=== PATIENT | female | born 1945 | race Caucasian/White ===

== ENCOUNTER 2019-04-05 17:56 | Inpatient (IN) | payer MEDICARE, MEDICAID ==
[2019-04-05] MEDS ORDERED: fentaNYL 100 MCG/2 ML SDV NASBOTH ONE ×2 (19:21→20:45)
[2019-04-05] MEDS ORDERED: Ondansetron 4 MG Tab.DIS PO ONE (19:21)
--- NOTE | 2019-04-05 19:24 | EDM.PDOC ---
ED HPI GENERAL MEDICAL PROBLEM - General Chief Complaint: Lower Extremity Injury/Pain Stated Complaint: MEDICAL VIA [facility] Time Seen by Provider: 04/05/19 19:16 Source of Information: Reports: Patient, Family, RN Notes Reviewed History Limitations: Reports: No Limitations - History of Present Illness INITIAL COMMENTS - FREE TEXT/NARRATIVE: 74-year-old female presents to the emergency department today complaint of right hip pain, she injured herself walking the dog pulling over she felt anorexia right elbow right shoulder did not hit her head there was no loss of consciousness denies any other trauma hip Pain Score (Numeric/FACES): 9 - Related Data Allergies Allergy/AdvReac Type Severity Reaction Status Date / Time codeine Allergy Other Verified 04/05/19 18:00 latex Allergy Other Verified 04/05/19 18:00 Home Meds: Home Meds Diltiazem [Cardizem CD] 120 mg PO DAILY 04/05/19 [History] Escitalopram [Lexapro] 5 mg PO DAILY 04/05/19 [History] Levothyroxine 25 mcg PO ACBREAKFAST 04/05/19 [History] Lisinopril 20 mg PO DAILY 04/05/19 [History] Mycophenolate Mofetil [Cellcept] 500 mg PO DAILY 04/05/19 [History] Pyridostigmine [Mestinon] 120 mg PO BID 04/05/19 [History] metFORMIN [Glucophage] 500 mg PO ASDIRECTED 04/05/19 [History] Past Medical History Cardiovascular History: Reports: CAD, [place] Gastrointestinal History: Reports: Diverticulosis Endocrine/Metabolic History: Reports: Diabetes, Type II Hematologic History: Reports: Other (See Below) Other Hematologic History: autoimmune disorder Social & Family History - Tobacco Use Smoking Status *Q: Never Smoker - Caffeine Use Caffeine Use: Reports: Coffee, Tea - Recreational Drug Use Recreational Drug Use: No Review of Systems - Review of Systems Review Of Systems: See Below Constitutional: Reports: No Symptoms Respiratory: Reports: No Symptoms Cardiovascular: Reports: No Symptoms GI/Abdominal: Reports: No Symptoms Musculoskeletal: Reports: Shoulder Pain, Joint Pain (Hip pain right side) Neurological: Reports: No Symptoms ED EXAM, GENERAL - Physical Exam Exam: See Below Free Text/Narrative:: Examination of the muscular system on the right side C is tender to palpation over the right hip pelvis area will not tolerate any movement whatsoever without pain pedal pulses +2, she does have an abrasion over the right elbow however it is not tender to palpation full range of motion, she is tender over the right shoulder I don't appreciate any edema or abrasion no erythema noted Exam Limited By: No Limitations General Appearance: Alert, WD/WN, No Apparent Distress Respiratory/Chest: No Respiratory Distress, Lungs Clear, Normal Breath Sounds, No Accessory Muscle Use, Chest Non-Tender Cardiovascular: Regular Rate, Rhythm, No Murmur Course - Vital Signs Last Recorded V/S: Last Vital Signs Temp 97.8 F 04/05/19 17:57 Pulse 70 04/05/19 21:30 Resp 20 04/05/19 21:30 BP 151/69 H 04/05/19 21:30 Pulse Ox 99 04/05/19 21:30 - Orders/Labs/Meds Orders: Active Orders 24 hr Category Date Time Status Sodium Chloride 0.9% [Saline Flush] Med 04/05/19 21:54 Active 10 ml FLUSH ASDIRECTED PRN Medication Orders Sodium Chloride (Saline Flush) 10 ml FLUSH ASDIRECTED 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 Last Admin: 04/05/19 22:10 Dose: 10 ml Meds: Medications Generic Name Dose Route Start Last Admin Trade Name Freq PRN Reason Stop Dose Admin Sodium Chloride 10 ml 04/05/19 21:54 04/05/19 22:10 Saline Flush FLUSH 10 ml ASDIRECTED PRN Administration line patrolman Discontinued Medications Generic Name Dose Route Start Last Admin Trade Name Freq PRN Reason Stop Dose Admin Fentanyl 50 mcg 04/05/19 19:21 04/05/19 19:30 Sublimaze NASBOTH 04/05/19 19:22 50 mcg ONETIME ONE Administration Fentanyl 50 mcg 04/05/19 20:45 04/05/19 20:53 Sublimaze NASBOTH 04/05/19 20:46 50 mcg ONETIME ONE Administration Hydromorphone HCl 1 mg 04/05/19 21:54 04/05/19 22:05 Dilaudid IVPUSH 04/05/19 21:55 1 mg ONETIME ONE Administration Ondansetron HCl 4 mg 04/05/19 19:21 04/05/19 19:31 Zofran Odt PO 04/05/19 19:22 4 mg ONETIME ONE Administration Departure - Departure Time of Disposition: 23:17 Disposition: Admitted As Inpatient 64 Condition: Fair Clinical Impression: Right femur fracture Intertrochanteric fracture of right femur Qualifiers: Encounter type: initial encounter Fracture type: closed Fracture alignment: nondisplaced Qualified Code(s): S72.144A - Nondisplaced intertrochanteric fracture of right femur, initial encounter for closed fracture - Discharge Information Referrals: PCP,None [Primary Care Provider] - Forms: ED Department Discharge - My Orders Last 24 Hours: My Active Orders 04/05/19 21:54 Sodium Chloride 0.9% [Saline Flush] 10 ml FLUSH ASDIRECTED PRN - Assessment/Plan Last 24 Hours: My Active Orders 04/05/19 21:54 Sodium Chloride 0.9% [Saline Flush] 10 ml FLUSH ASDIRECTED PRN Plan: Assessment Acuity = acute Site and laterality = nondisplaced intertrochanteric fracture right proximal femur Etiology = secondary fall with trauma Manifestations = pain Location of injury = Home Lab values = x-rays shoulder elbow negative for any fracture, x-ray of the hip questionable for fracture confirmed with CT scan which describes above Plan Called discussed case with Dr. Guidry at 2300 kindly accepted the patient's will evaluate patient in the hospital This note was dictated using [employer] voice recognition software please call with any questions on syntax or grammar.
--- NOTE | 2019-04-05 20:34 | CRLCR ---
HISTORY: Status post fall with pain. COMPARISON: None available. FINDINGS: The right elbow is examined with AP, lateral, and oblique views. There is no sign of fracture, dislocation, or joint effusion. The soft tissues are normal in appearance without sign of radio-opaque foreign body. No significant degenerative disease is seen. IMPRESSION: Normal right elbow examination. Dictated by Omar Womack MD @ Apr 05 2019 8:30PM Signed by Dr. Omar Womack @ Apr 05 2019 8:32PM
--- NOTE | 2019-04-05 20:34 | CRLCR ---
INDICATION: Fall, pelvic and hip pain TECHNIQUE: Pelvis radiograph, Hip radiograph 3 views right COMPARISON: None FINDINGS: Bone: On the frog-leg lateral view, there are serpiginous lucency seen over the greater trochanter. Joint: Severe degenerative disc narrowing seen at L4-5 with bilateral severe facet osteoarthritis seen. The visualized sacroiliac joints are unremarkable in appearance. The pubic symphysis is normal in appearance. Soft tissue: Unremarkable. Mild to moderate vascular calcifications are noted. Numerous bilateral pelvic phleboliths seen. No radiopaque foreign bodies are seen. IMPRESSION: 1. On the frog-leg lateral view, there are serpiginous lucency seen over the right greater trochanter. Further evaluation with CT is recommended to exclude a nondisplaced fracture. Dictated by Azam Keith MD @ 04/05/2019 8:33:31 PM Dictated by: Azam Keith MD @ 04/05/2019 20:33:43 (Electronically Signed)
--- NOTE | 2019-04-05 20:36 | CRLCR ---
INDICATION: Fall, shoulder pain TECHNIQUE: Shoulder radiograph 3 views right COMPARISON: None FINDINGS: Bone: No acute fractures or aggressive bone lesions are identified. Joint: The glenohumeral is unremarkable. The acromioclavicular joint is unremarkable. Soft tissue: Unremarkable. The visualized hemithorax is unremarkable in appearance. No radiopaque foreign bodies are seen. IMPRESSION: 1. No acute osseous injuries or abnormalities are noted. Dictated by: Azam Keith MD @ 04/05/2019 20:34:08 (Electronically Signed)
[2019-04-05] MEDS ORDERED: Sodium Chloride 0.9% 10 ML Syringe FLUSH PRN ×2 (21:54→23:19)
[2019-04-05] MEDS ORDERED: HYDROmorphone 1 MG/ML Syringe IVPUSH ONE (21:54)
--- NOTE | 2019-04-05 22:16 | CRLCT ---
INDICATION: Fall, right hip pain TECHNIQUE: CT pelvis without i.v. contrast. Coronal and sagittal reformats were obtained. COMPARISON: Radiograph today FINDINGS: Bone: There is a nondisplaced intertrochanteric fracture present within the right proximal femur with fracture lines involving the greater trochanter. The predominant fracture line is best visualized on coronal image 49. The remainder of the pelvis and visualized left proximal femur are unremarkable in appearance. Joint: The hip joint is unremarkable. No significant hip effusion is seen. The visualized sacroiliac joints are unremarkable in appearance. The pubic symphysis is normal in appearance. Soft tissue: Unremarkable. The visualized bowel gas pattern of the pelvis is unremarkable in appearance. No radiopaque foreign bodies are seen. IMPRESSION: 1. There is a nondisplaced intertrochanteric fracture present within the right proximal femur with fracture lines involving the greater trochanter. Dictated by Azam Keith MD @ 04/05/2019 10:13:20 PM Please note that all CT scans at this facility use dose modulation, iterative reconstruction, and/or weight-based dosing when appropriate to reduce radiation dose to as low as reasonably achievable. Dictated by: Azam Keith MD @ 04/05/2019 22:13:40 (Electronically Signed)
[2019-04-05] MEDS ORDERED: Lactated Ringers 1,000 ML IV SCH (23:30)
[2019-04-05] MEDS ORDERED: metFORMIN 500 MG Tab PO SCH (23:45)
[2019-04-06] MEDS: HYDROmorphone 0.5 MG/0.5 ML Syringe IVPUSH PRN ×2 (01:14→07:52)
[2019-04-06] MEDS: Ondansetron 4 MG/2 ML SDV IV PRN ×2 (01:32→07:58)
[2019-04-06] MEDS ORDERED: Propofol 200 MG/20 ML SDV ONE ×2 (08:49→13:55)
[2019-04-06] MEDS ORDERED: Midazolam 1 MG/ML 2 ML SDV ONE (08:50)
[2019-04-06] MEDS ORDERED: fentaNYL 100 MCG/2 ML SDV ONE (08:50)
[2019-04-06] MEDS ORDERED: Promethazine 6.25 MG in Sodium Chloride 0.9% 50 ML IV PRN (10:16)
[2019-04-06] MEDS: Escitalopram 10 MG Tab PO SCH (10:25)
[2019-04-06] MEDS: Lisinopril 20 MG Tab PO SCH (10:25)
[2019-04-06] MEDS: Levothyroxine 25 MCG Tab PO SCH (10:25)
[2019-04-06] MEDS: Mycophenolate Mofetil 250 MG Cap PO SCH (10:25)
[2019-04-06] MEDS: Diltiazem 120 MG Cap.CD PO SCH (10:25)
--- NOTE | 2019-04-06 10:43 | PCM.CONS ---
H&P History of Present Illness - General Date of Service: 04/06/19 Admit Problem/Dx: Admission Diagnosis/Problem Admission Diagnosis/Problem Hip fracture requiring operative repair Source of Information: Patient, Family, Provider History Limitations: Reports: No Limitations - History of Present Illness Initial Comments - Free Text/Narative: CC: I fell on my hip HPI: Bailey presented to the emergency room last night with right hip pain after falling while walking her dog. Workup in the emergency room revealed a nondisplaced intertrochanteric fracture of the right hip. She was admitted for surgical management. I was asked to see her this morning regarding medical management of her type 2 diabetes mellitus, myasthenia gravis and hypertension. Her pain is currently very well controlled. She is reporting only mild to moderate sharp pain in the right hip. Pain is worse when she moves around. It gets better when she rests and when she uses her pain medications. No complaints of shortness of breath. She has had a couple of episodes of vomiting which she blames on her pain medications. She has not had recent fevers. No concerns about infection. She has had previous surgeries with no difficulty with anesthesia. hip Pain Score (Numeric/FACES): 7 - Related Data Allergies/Adverse Reactions: Allergies Allergy/AdvReac Type Severity Reaction Status Date / Time codeine Allergy Other Verified 04/05/19 18:00 latex Allergy Other Verified 04/05/19 18:00 Home Medications: Home Meds Diltiazem [Cardizem CD] 120 mg PO DAILY 04/05/19 [History] Escitalopram [Lexapro] 5 mg PO DAILY 04/05/19 [History] Levothyroxine 25 mcg PO ACBREAKFAST 04/05/19 [History] Lisinopril 20 mg PO DAILY 04/05/19 [History] Mycophenolate Mofetil [Cellcept] 500 mg PO DAILY 04/05/19 [History] Pyridostigmine [Mestinon] 120 mg PO BID 04/05/19 [History] metFORMIN [Glucophage] 500 mg PO ASDIRECTED 04/05/19 [History] Past Medical History HEENT History: Reports: Hard of Hearing, Impaired Vision Cardiovascular History: Reports: None Gastrointestinal History: Reports: Diverticulosis [employer] History: Reports: Musculoskeletal History: Reports: Osteoarthritis Endocrine/Metabolic History: Reports: Diabetes, Type II, Hypothyroidism, Other ( See Below) Other Endocrine/Metabolic History: myasthenia gravis Hematologic History: Reports: Other (See Below) Other Hematologic History: autoimmune disorder Immunologic History: Reports: None - Infectious Disease History Infectious Disease History: Reports: Chicken Pox, Measles - Past Surgical History Head Surgeries/Procedures: Reports: None HEENT Surgical History: Reports: None Cardiovascular Surgical History: Reports: None GI Surgical History: Reports: Other (See Below) Other GI Surgeries/Procedures: sigmoid colon resection Endocrine Surgical History: Reports: None Social & Family History - Family History Family Medical History: Noncontributory - Tobacco Use Smoking Status *Q: Never Smoker Second Hand Smoke Exposure: No - Caffeine Use Caffeine Use: Reports: Coffee, Soda - Recreational Drug Use Recreational Drug Use: No H&P Review of Systems - Review of Systems: Review Of Systems: See Below Free Text/Narrative: A complete 12 point review of systems was obtained. Pertinent positives and negatives are noted in the history of present illness. All other systems were reviewed and were negative except as noted. Exam - Exam Exam: See Below - Vital Signs Vital Signs: Last Vital Signs Temp 35.9 C 04/06/19 07:23 Pulse 78 04/06/19 07:23 Resp 16 04/06/19 07:23 BP 154/72 H 04/06/19 07:23 Pulse Ox 98 04/06/19 07:23 Weight: 57.379 kg - Exam Quality Assessment: No: Supplemental Oxygen General: Alert, Oriented, Cooperative. No: Mild Distress HEENT: Conjunctiva Clear, Mucosa Moist & [place] Neck: Supple. No: Lymphadenopathy Lungs: Clear to Auscultation, Normal Respiratory Effort Cardiovascular: Regular Rate, Regular Rhythm. No: Systolic Murmur GI/Abdominal Exam: Soft, No Distention Extremities: No Pedal Edema. No: Increased Warmth Skin: Warm, Dry Neuro Extensive - Mental Status: Alert, Oriented x3, Nl Response to Commands Neuro Extensive - Motor, Sensory, Reflexes: Other (Disconjugate gaze). No: Abnormal Motor, Tremor Psychiatric: Alert, Normal Affect - Patient Data Lab Results Last 24 hrs: Laboratory Results - last 24 hr 04/06/19 04/06/19 Range/Units 04:50 04:50 WBC 6.8 (4.5-11.0) K/uL RBC 3.87 (3.30-5.50) M/uL Hgb 12.0 (12.0-15.0) g/dL Hct 35.8 L (36.0-48.0) % MCV 93 (80-98) fL MCH 31 (27-31) pg MCHC 34 (32-36) % Plt Count 188 (150-400) K/uL Neut % (Auto) 86 H (36-66) % Lymph % (Auto) 6 L (24-44) % [place] % (Auto) 8 H (2-6) % Eos % (Auto) 0 L (2-4) % Baso % (Auto) 0 (0-1) % Sodium 139 L (140-148) mmol/L Potassium 3.8 (3.6-5.2) mmol/L Chloride 104 (100-108) mmol/L Carbon Dioxide 29 (21-32) mmol/L Anion Gap 9.8 (5.0-14.0) mmol/L BUN 10 (7-18) mg/dL Creatinine 0.7 (0.6-1.0) mg/dL Est Cr Clr Drug Dosing 61.52 mL/min Estimated GFR (MDRD) > 60 (>60) Glucose 153 H (74-106) mg/dL Calcium 8.8 (8.5-10.1) mg/dL Total Bilirubin 0.6 (0.2-1.0) mg/dL AST 16 (15-37) U/L ALT 22 (12-78) U/L Alkaline Phosphatase 51 (46-116) U/L Total Protein 6.8 (6.4-8.2) g/dL Albumin 3.2 L (3.4-5.0) g/dL Globulin 3.6 H (2.3-3.5) g/dL Albumin/Globulin Ratio 0.9 L (1.2-2.2) Result Diagrams: 04/06/19 04:50 04/06/19 04:50 Imaging Impressions Last 24 hrs: X-ray of the pelvis/right hip - images personally reviewed - probable nondisplaced intertrochanteric fracture of the right CT scan of the right hip - nondisplaced intertrochanteric fracture involving the right greater trochanter Consult PN Assessment/Plan Problem List Initiated/Reviewed/Updated: Yes My Orders Last 24 Hours: My Active Orders 04/06/19 10:45 Lactated Ringers [Ringers, Lactated] 1,000 ml IV ASDIRECTED 04/07/19 05:00 BASIC METABOLIC PANEL,BMP [CHEM] Timed CBC W/O DIFF,HEMOGRAM [HEME] Timed (1) Plan: ASSESSMENT AND PLAN - Nondisplaced intertrochanteric fracture of the right hip - surgical intervention planned later in the day. Patient appears medically optimized for the proposed procedure. Patient is healthy and active with no obvious contraindications. -Surgical intervention as planned -Pain control -Physical therapy when appropriate Myasthenia gravis - main manifestation at this time is difficulty with control of eye muscles. -Continue home medications Type 2 diabetes mellitus - very well controlled. Patient has been off of her metformin and blood sugars have been in the normal or very mildly elevated range. Essential hypertension - blood pressure well controlled. Etienne Mccauley M.D. Requesting Provider: Dr Guidry Date Consult Requested: 04/06/19 Reason for Consult: Medical management of diabetes, HTN and myasthenia graviS Patient History Reviewed: Yes Admission H&P Reviewed: Yes Notified Requestor: No Time Spent (in minutes): 45
[2019-04-06] MEDS ORDERED: Lactated Ringers 1,000 ML IV SCH (10:45)
[2019-04-06] MEDS ORDERED: Bupivacaine 0.5%/EPINEPHrine 1:200,000 50 ML MDV ONE (12:19)
--- NOTE | 2019-04-06 12:39 | PCM.HP ---
H&P History of Present Illness - General Date of Service: 04/06/19 Admit Problem/Dx: Admission Diagnosis/Problem Admission Diagnosis/Problem Hip fracture requiring operative repair Source of Information: Patient History Limitations: Reports: No Limitations - History of Present Illness Initial Comments - Free Text/Narative: 74 year old female sustained a fall when she was pulled off balance while walking her dog. Landed onto he right side and had pain with attempted weight bearing. No loss of consciousness. Evaluated in the ED and found to have a non- displaced fracture of the IT region of the right hip. She is admitted for treatment. Has a history of myasthenia gravis that currently is affecting her vision and can cause some balance problems but was not a factor in this fall. Also with a history of well controlled DM and HTN. Onset of Symptoms: Reports: Sudden Duration of Symptoms: Reports: Constant Location: Reports: Lower Extremity, Right Quality: Reports: Stabbing Severity: Moderate Improves with: Reports: Immobilization, Rest Worsens with: Reports: Movement Associated Symptoms: Reports: No Other Symptoms hip Pain Score (Numeric/FACES): 7 - Related Data Allergies/Adverse Reactions: Allergies Allergy/AdvReac Type Severity Reaction Status Date / Time codeine Allergy Other Verified 04/05/19 18:00 latex Allergy Other Verified 04/05/19 18:00 Home Medications: Home Meds Diltiazem [Cardizem CD] 120 mg PO DAILY 04/05/19 [History] Escitalopram [Lexapro] 5 mg PO DAILY 04/05/19 [History] Levothyroxine 25 mcg PO ACBREAKFAST 04/05/19 [History] Lisinopril 20 mg PO DAILY 04/05/19 [History] Mycophenolate Mofetil [Cellcept] 500 mg PO DAILY 04/05/19 [History] Pyridostigmine [Mestinon] 120 mg PO BID 04/05/19 [History] metFORMIN [Glucophage] 500 mg PO ASDIRECTED 04/05/19 [History] Past Medical History HEENT History: Reports: Hard of Hearing, Impaired Vision Cardiovascular History: Reports: None Gastrointestinal History: Reports: Diverticulosis [employer] History: Reports: Musculoskeletal History: Reports: Osteoarthritis Endocrine/Metabolic History: Reports: Diabetes, Type II, Hypothyroidism, Other ( See Below) Other Endocrine/Metabolic History: myasthenia gravis Hematologic History: Reports: Other (See Below) Other Hematologic History: autoimmune disorder Immunologic History: Reports: None - Infectious Disease History Infectious Disease History: Reports: Chicken Pox, Measles - Past Surgical History Head Surgeries/Procedures: Reports: None HEENT Surgical History: Reports: None Cardiovascular Surgical History: Reports: None GI Surgical History: Reports: Other (See Below) Other GI Surgeries/Procedures: sigmoid colon resection Endocrine Surgical History: Reports: None Social & Family History - Family History Family Medical History: Noncontributory - Tobacco Use Smoking Status *Q: Never Smoker Second Hand Smoke Exposure: No - Caffeine Use Caffeine Use: Reports: Coffee, Soda - Recreational Drug Use Recreational Drug Use: No H&P Review of Systems - Review of Systems: Review Of Systems: ROS reveals no pertinent complaints other than HPI. Exam - Exam Exam: See Below - Vital Signs Vital Signs: Last Vital Signs Temp 35.7 C 04/06/19 11:08 Pulse 68 04/06/19 11:08 Resp 16 04/06/19 11:08 BP 142/61 H 04/06/19 11:08 Pulse Ox 99 04/06/19 11:08 Weight: 57.379 kg - Exam General: Alert, Oriented, 4 HEENT: PERRLA, Conjunctiva Clear, EACs Clear, EOMI, Hearing Intact, Mucosa Moist & [place], Nares Patent, Normal Nasal Septum, Posterior Pharynx Clear, Pupils Equal, Pupils Reactive, TMs Clear, Other (difficulty with cotrol of ocular muscles secondary to myasthenia) Neck: Supple, Trachea Midline, 2 Lungs: Clear to Auscultation, Normal Respiratory Effort Cardiovascular: Regular Rate, Regular Rhythm GI/Abdominal Exam: Normal Bowel Sounds, Soft, Non-Tender, No Organomegaly, No Distention, No Abnormal Bruit, No Mass, Pelvis Stable (Female) Exam: Deferred Rectal (Female) Exam: Deferred Extremities: Leg Pain, Other (Pain with motion of right hip, limb lengths equal) Peripheral Pulses: 1+: Dorsalis Pedis (L), Dorsalis Pedis (R) Skin: Warm, Dry, Intact Neurological: Cranial Nerves Intact, Reflexes Equal Bilateral Neuro Extensive - Mental Status: Alert, Oriented x3, Normal Mood/Affect, Normal Cognition Neuro Extensive - Motor, Sensory, Reflexes: CN II-XII Intact Psychiatric: Alert, Normal Affect, Normal Mood - Patient Data Lab Results Last 24 hrs: Laboratory Results - last 24 hr 04/06/19 04/06/19 Range/Units 04:50 04:50 WBC 6.8 (4.5-11.0) K/uL RBC 3.87 (3.30-5.50) M/uL Hgb 12.0 (12.0-15.0) g/dL Hct 35.8 L (36.0-48.0) % MCV 93 (80-98) fL MCH 31 (27-31) pg MCHC 34 (32-36) % Plt Count 188 (150-400) K/uL Neut % (Auto) 86 H (36-66) % Lymph % (Auto) 6 L (24-44) % [place] % (Auto) 8 H (2-6) % Eos % (Auto) 0 L (2-4) % Baso % (Auto) 0 (0-1) % Sodium 139 L (140-148) mmol/L Potassium 3.8 (3.6-5.2) mmol/L Chloride 104 (100-108) mmol/L Carbon Dioxide 29 (21-32) mmol/L Anion Gap 9.8 (5.0-14.0) mmol/L BUN 10 (7-18) mg/dL Creatinine 0.7 (0.6-1.0) mg/dL Est Cr Clr Drug Dosing 61.52 mL/min Estimated GFR (MDRD) > 60 (>60) Glucose 153 H (74-106) mg/dL Calcium 8.8 (8.5-10.1) mg/dL Total Bilirubin 0.6 (0.2-1.0) mg/dL AST 16 (15-37) U/L ALT 22 (12-78) U/L Alkaline Phosphatase 51 (46-116) U/L Total Protein 6.8 (6.4-8.2) g/dL Albumin 3.2 L (3.4-5.0) g/dL Globulin 3.6 H (2.3-3.5) g/dL Albumin/Globulin Ratio 0.9 L (1.2-2.2) Result Diagrams: 04/06/19 04:50 04/06/19 04:50 - Problem List (1) Hypertension SNOMED Code(s): 76573661 ICD Code: I10 - ESSENTIAL (PRIMARY) HYPERTENSION Status: Acute Current Visit: Yes Qualifiers: Hypertension type: essential hypertension Qualified Code(s): I10 - Essential (primary) hypertension (2) Diabetes mellitus type 2 in nonobese SNOMED Code(s): 693088571 ICD Code: E11.9 - TYPE 2 DIABETES MELLITUS WITHOUT COMPLICATIONS Status: Acute Current Visit: Yes (3) Myasthenia gravis SNOMED Code(s): 98522148 ICD Code: G70.00 - MYASTHENIA GRAVIS WITHOUT (ACUTE) EXACERBATION Status: Acute Current Visit: Yes (4) Nondisplaced intertrochanteric fracture of femur SNOMED Code(s): 933493930, 851726375 ICD Code: S72.146A - NONDISPLACED INTERTROCHANTERIC FRACTURE OF UNSP FEMUR, INIT Status: Acute Current Visit: Yes Qualifiers: Encounter type: initial encounter Fracture type: closed Laterality: right Qualified Code(s): S72.144A - Nondisplaced intertrochanteric fracture of right femur, initial encounter for closed fracture Problem List Initiated/Reviewed/Updated: Yes Orders Last 24hrs: Active Orders 24 hr Category Date Time Status Patient Status [ADT] Routine ADT 04/05/19 23:19 Active Bedrest Bedside Commode [RC] ASDIRECTED Care 04/05/19 23:19 Active EKG Documentation Completion [RC] ASDIRECTED Care 04/06/19 01:41 Active Height and Weight [RC] DAILY Care 04/05/19 23:19 Active Intake and Output [RC] QSHIFT Care 04/05/19 23:45 Active Notify Provider Consults [RC] ASDIRECTED Care 04/06/19 10:19 Active Oxygen Therapy [RC] PRN Care 04/05/19 23:19 Active Peripheral IV Care [RC] Q12H Care 04/05/19 23:46 Active VTE/DVT Education [RC] Per Unit Routine Care 04/05/19 23:19 Active Verify Patient Consent Obtain [RC] ASDIRECTED Care 04/06/19 10:16 Active Vital Signs [RC] Q4H Care 04/05/19 23:19 Active Consult to Physician [CONS] Routine Cons 04/06/19 10:17 Ordered Fluoro Up To 1Hr [CR] Routine Exams 04/06/19 12:00 Ordered BASIC METABOLIC PANEL,BMP [CHEM] Timed Lab 04/07/19 05:00 Ordered CBC W/O DIFF,HEMOGRAM [HEME] Timed (1) Lab 04/07/19 05:00 Ordered Diltiazem [Cardizem CD] Med 04/06/19 09:00 Active 120 mg PO DAILY Escitalopram [Lexapro] Med 04/06/19 09:00 Active 5 mg PO DAILY HYDROmorphone [Dilaudid] Med 04/05/19 23:19 Active 0.5 mg IVPUSH Q2H PRN Lactated Ringers [Ringers, Lactated] 1,000 ml Med 04/06/19 10:45 Active IV ASDIRECTED Levothyroxine Med 04/06/19 07:30 Active 25 mcg PO ACBREAKFAST Lisinopril [Prinivil] Med 04/06/19 09:00 Active 20 mg PO DAILY Mycophenolate Mofetil [Cellcept] Med 04/06/19 09:00 Active 500 mg PO DAILY Ondansetron [Zofran] Med 04/05/19 23:19 Active 4 mg IV Q6H PRN Promethazine [Phenergan] 6.25 mg Med 04/06/19 10:16 Active Sodium Chloride 0.9% [Normal Saline] 50 ml IV Q4H Pyridostigmine [Mestinon] Med 04/06/19 09:00 Active 120 mg PO BID Sodium Chloride 0.9% [Saline Flush] Med 04/05/19 23:19 Active 10 ml FLUSH ASDIRECTED PRN Peripheral IV Insertion Adult [OM.PC] Routine Oth 04/05/19 23:19 Ordered Sequential Compression Device [OM.PC] Per Unit Routine Oth 04/05/19 23:45 Ordered Resuscitation Status Routine Resus Stat 04/05/19 23:19 Ordered EKG 12 Lead [EK] AM Ther 04/06/19 05:11 Ordered Medication Orders Diltiazem HCl (Cardizem Cd) 120 mg PO DAILY [facility] Last Admin: 04/06/19 10:25 Dose: Escitalopram Oxalate (Lexapro) 5 mg PO DAILY [facility] Last Admin: 04/06/19 10:25 Dose: Hydromorphone HCl (Dilaudid) 0.5 mg IVPUSH Q2H PRN PRN Reason: Pain Last Admin: 04/06/19 07:52 Dose: 0.5 mg Admin: 04/06/19 01:14 Dose: 0.5 mg Promethazine HCl 6.25 mg/ (Sodium Chloride) 50.25 mls @ 200 mls/hr IV Q4H PRN PRN Reason: Nausea/Vomiting Lactated Ringer's (Ringers, Lactated) 1,000 mls @ 75 mls/hr IV ASDIRECTED [facility] Levothyroxine Sodium (Levothyroxine) 25 mcg PO ACBREAKFAST [facility] Last Admin: 04/06/19 10:25 Dose: Lisinopril (Prinivil) 20 mg PO DAILY [facility] Last Admin: 04/06/19 10:25 Dose: Mycophenolate Mofetil (Cellcept) 500 mg PO DAILY [facility] Last Admin: 04/06/19 10:25 Dose: Ondansetron HCl (Zofran) 4 mg IV Q6H PRN PRN Reason: Nausea/Vomiting Last Admin: 04/06/19 07:58 Dose: 4 mg Admin: 04/06/19 01:32 Dose: 4 mg Pyridostigmine [place] (Mestinon) 120 mg PO BID [facility] Last Admin: 04/06/19 10:25 Dose: Sodium Chloride (Saline Flush) 10 ml FLUSH ASDIRECTED PRN PRN Reason: Keep Vein Open Assessment/Plan Comment:: Non-displaced fracture of the right hip, intertrochanteric. Recommend internal fixation with intramedullary device to allow early mobilization and weight bearing. Mechanical fall with no syncope, LOC. There does not appear to be any contraindication to surgery at this point. Discussed fracture and planned surgery with patient and her family. They expressed understanding and agree to the plan Appreciate Medical Service input and help with management.
[2019-04-06] MEDS ORDERED: Scopolamine 1.5 MG Transdermal Patch TRDERM ONE (12:45)
[2019-04-06] MEDS ORDERED: Lactated Ringers 1,000 ML ONE (14:29)
[2019-04-06] MEDS ORDERED: Ondansetron 4 MG/2 ML SDV ONE (14:31)
[2019-04-06] MEDS ORDERED: Dexamethasone 4 MG/ML SDV ONE (14:31)
[2019-04-06] MEDS ORDERED: Docusate Sodium 100 MG Cap PO PRN (14:51)
[2019-04-06] MEDS ORDERED: Magnesium Hydroxide 400 MG/5 ML Susp 30 ML Cup PO PRN (14:51)
[2019-04-06] MEDS ORDERED: ceFAZolin 1 GM in Sodium Chloride 0.9% 50 ML IV SCH (15:00)
[2019-04-06] MEDS: ceFAZolin 1 GM in Premix Bag 1 BAG IV SCH ×3 (15:35→23:31)
[2019-04-06] MEDS: Acetaminophen 325 MG Tab PO PRN ×2 (17:11→23:37)
[2019-04-06] MEDS: traMADol 50 MG Tab PO PRN (19:16)
[2019-04-06] MEDS: Morphine 2 MG/ML Syringe IVPUSH PRN (21:18)
[2019-04-06] MEDS ORDERED: ceFAZolin 1 GM Vial ONE (23:23)
[2019-04-06] MEDS ORDERED: Sodium Chloride 0.9% 50 ML ONE (23:24)
[2019-04-07] MEDS: traMADol 50 MG Tab PO PRN ×4 (01:33→20:15)
[2019-04-07] MEDS: Morphine 2 MG/ML Syringe IVPUSH PRN (06:02)
[2019-04-07] MEDS: Acetaminophen 325 MG Tab PO PRN ×3 (06:03→22:39)
[2019-04-07] MEDS: Levothyroxine 25 MCG Tab PO SCH (07:43)
[2019-04-07] MEDS: ceFAZolin 1 GM in Premix Bag 1 BAG IV SCH ×3 (08:25→22:41)
[2019-04-07] MEDS: Escitalopram 10 MG Tab PO SCH (08:27)
[2019-04-07] MEDS: Diltiazem 120 MG Cap.CD PO SCH (08:28)
[2019-04-07] MEDS: Lisinopril 20 MG Tab PO SCH (08:28)
[2019-04-07] MEDS: Mycophenolate Mofetil 250 MG Cap PO SCH (10:53)
--- NOTE | 2019-04-07 13:15 | PCM.CONSN ---
- General Info Date of Service: 04/07/19 Subjective Update: There were no acute events overnight. Patient tolerated surgery well. Pain minimal at rest but at least moderate with activity. Vital signs have been stable. No hypoxia. No nausea or abdominal pain. Hemoglobin has dropped down to 8.8 following surgery. Functional Status: Reports: Pain Controlled, Tolerating Diet, Ambulating - Review of Systems General: Denies: Fever Musculoskeletal: Reports: Joint Pain - Patient Data Vitals - Most Recent: Last Vital Signs Temp 35.5 C 04/07/19 11:00 Pulse 73 04/07/19 11:00 Resp 16 04/07/19 11:00 BP 113/51 L 04/07/19 11:00 Pulse Ox 99 04/07/19 11:00 Weight - Most Recent: 57.379 kg I&O - Last 24 Hours: Intake & Output 04/06/19 04/07/19 04/07/19 22:59 06:59 14:59 Intake Total 1934 1680 Output Total 900 800 Balance 1034 880 Lab Results Last 24 Hours: Laboratory Results - last 24 hr 04/07/19 04/07/19 Range/Units 05:38 05:38 WBC 7.2 (4.5-11.0) K/uL RBC 2.88 L (3.30-5.50) M/uL Hgb 8.8 L D (12.0-15.0) g/dL Hct 27.0 L (36.0-48.0) % MCV 94 (80-98) fL MCH 31 (27-31) pg MCHC 33 (32-36) % Plt Count 159 (150-400) K/uL Sodium 138 L (140-148) mmol/L Potassium 4.6 (3.6-5.2) mmol/L Chloride 104 (100-108) mmol/L Carbon Dioxide 31 (21-32) mmol/L Anion Gap 7.6 (5.0-14.0) mmol/L BUN 10 (7-18) mg/dL Creatinine 0.8 (0.6-1.0) mg/dL Est Cr Clr Drug Dosing 53.75 mL/min Estimated GFR (MDRD) > 60 (>60) Glucose 159 H (74-106) mg/dL Calcium 8.7 (8.5-10.1) mg/dL Med Orders - Current: Current Medications Acetaminophen (Tylenol) 650 mg PO Q6H PRN PRN Reason: Pain (mild 1-3) Last Admin: 04/07/19 06:03 Dose: 650 mg Diltiazem HCl (Cardizem Cd) 120 mg PO DAILY [facility] Last Admin: 04/07/19 08:28 Dose: 120 mg Docusate Sodium (Colace) 100 mg PO BID PRN PRN Reason: Constipation Last Admin: 04/07/19 07:42 Dose: 100 mg Escitalopram Oxalate (Lexapro) 5 mg PO DAILY [facility] Last Admin: 04/07/19 08:27 Dose: 5 mg Promethazine HCl 6.25 mg/ (Sodium Chloride) 50.25 mls @ 200 mls/hr IV Q4H PRN PRN Reason: Nausea/Vomiting Cefazolin Sodium/Dextrose 1 gm (/ Premix) 50 mls @ 100 mls/hr IV Q8H [facility] Stop: 04/08/19 07:59 Last Admin: 04/07/19 08:25 Dose: 100 mls/hr Levothyroxine Sodium (Levothyroxine) 25 mcg PO ACBREAKFAST [facility] Last Admin: 04/07/19 07:43 Dose: 25 mcg Lisinopril (Prinivil) 20 mg PO DAILY [facility] Last Admin: 04/07/19 08:28 Dose: 20 mg Magnesium Hydroxide (Milk Of Magnesia) 30 ml PO Q6H PRN PRN Reason: Constipation Morphine Sulfate (Morphine) 2 mg IVPUSH Q1H PRN PRN Reason: Pain (severe 7-10) Last Admin: 04/07/19 06:02 Dose: 2 mg Mycophenolate Mofetil (Cellcept) 500 mg PO DAILY [facility] Last Admin: 04/07/19 10:53 Dose: 500 mg Ondansetron HCl (Zofran) 4 mg IV Q6H PRN PRN Reason: Nausea/Vomiting Last Admin: 04/06/19 07:58 Dose: 4 mg Pyridostigmine [place] (Mestinon) 120 mg PO BID [facility] Last Admin: 04/07/19 08:28 Dose: 120 mg Sodium Chloride (Saline Flush) 10 ml FLUSH ASDIRECTED PRN PRN Reason: Keep Vein Open Tramadol HCl (Ultram) 50 mg PO Q6H PRN PRN Reason: Pain (moderate 4-6) Last Admin: 04/07/19 07:42 Dose: 50 mg Discontinued Medications Bupivacaine HCl/Epinephrine Bitart (Marcaine 0.5%/Epinephrine 1:200,000) Confirm Administered Dose 50 ml .ROUTE .STK-MED ONE Stop: 04/06/19 12:20 Cefazolin Sodium (Ancef) Confirm Administered Dose 1 gm .ROUTE .STK-MED ONE Stop: 04/06/19 23:24 Last Admin: 04/06/19 23:31 Dose: 1 gm Dexamethasone (Dexamethasone) Confirm Administered Dose 4 mg .ROUTE .STK-MED ONE Stop: 04/06/19 14:32 Fentanyl (Sublimaze) 50 mcg NASBOTH ONETIME ONE Stop: 04/05/19 19:22 Last Admin: 04/05/19 19:30 Dose: 50 mcg Fentanyl (Sublimaze) 50 mcg NASBOTH ONETIME ONE Stop: 04/05/19 20:46 Last Admin: 04/05/19 20:53 Dose: 50 mcg Fentanyl (Sublimaze) Confirm Administered Dose 100 mcg .ROUTE .ST-MED ONE Stop: 04/06/19 08:51 Hydromorphone HCl (Dilaudid) 1 mg IVPUSH ONETIME ONE Stop: 04/05/19 21:55 Last Admin: 04/05/19 22:05 Dose: 1 mg Hydromorphone HCl (Dilaudid) 0.5 mg IVPUSH Q2H PRN PRN Reason: Pain Last Admin: 04/06/19 07:52 Dose: 0.5 mg Lactated Ringer's (Ringers, Lactated) 1,000 mls @ 125 mls/hr IV ASDIRECTED [facility] Lactated Ringer's (Ringers, Lactated) 1,000 mls @ 75 mls/hr IV ASDIRECTED [facility] Last Admin: 04/06/19 22:04 Dose: 75 mls/hr Lactated Ringer's (Ringers, Lactated) Confirm Administered Dose 1,000 mls @ as directed .ROUTE .STK-MED ONE Stop: 04/06/19 14:30 Sodium Chloride (Normal Saline) Confirm Administered Dose 50 mls @ as directed .ROUTE .STK-MED ONE Stop: 04/06/19 23:25 Last Admin: 04/06/19 23:31 Dose: 100 mls/hr Metformin HCl (Glucophage) 500 mg PO ASDIRECTED [facility] Midazolam HCl (Versed 1 Mg/Ml) Confirm Administered Dose 2 mg .ROUTE .STK-MED ONE Stop: 04/06/19 08:51 Ondansetron HCl (Zofran Odt) 4 mg PO ONETIME ONE Stop: 04/05/19 19:22 Last Admin: 04/05/19 19:31 Dose: 4 mg Ondansetron HCl (Zofran) Confirm Administered Dose 4 mg .ROUTE .STK-MED ONE Stop: 04/06/19 14:32 Propofol (Diprivan 20 Ml) Confirm Administered Dose 200 mg .ROUTE .STK-MED ONE Stop: 04/06/19 08:50 Propofol (Diprivan 20 Ml) Confirm Administered Dose 200 mg .ROUTE .STK-MED ONE Stop: 04/06/19 13:56 Scopolamine (Transderm-Scop) 1.5 mg TRDERM Q72H ONE Stop: 04/06/19 12:46 Last Admin: 04/06/19 12:55 Dose: 1.5 mg Sodium Chloride (Saline Flush) 10 ml FLUSH ASDIRECTED 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 Last Admin: 04/05/19 22:10 Dose: 10 ml - Exam Quality Assessment: No: Supplemental Oxygen General: Alert, Oriented, Cooperative, No Acute Distress Lungs: Normal Respiratory Effort Cardiovascular: Regular Rate, Regular Rhythm GI/Abdominal Exam: Soft, No Distention Extremities: No Pedal Edema Skin: Warm, Dry Wound/Incisions: Other (mild blood staining on right hip dressing ) Psy/Mental Status: Alert, Normal Affect Consult PN Assessment/Plan POD#: 1 Problem List Initiated/Reviewed/Updated: Yes My Orders Last 24 Hours: My Active Orders 04/07/19 13:13 Convert IV to Saline Lock [OM.PC] Routine 04/07/19 13:14 Up With Assistance [RC] ASDIRECTED 04/08/19 05:00 HGB [HEMOGLOBIN] [HEME] Timed Plan: ASSESSMENT AND PLAN - Nondisplaced intertrochanteric fracture of the right hip - surgical intervention with IM nailing completed on 04/06. Pain well-controlled. Working with physical therapy. -Postoperative cares per orthopedic team -Pain control -Physical therapy -50% weightbearing on the right leg Myasthenia gravis - main manifestation at this time is difficulty with control of eye muscles. -Continue home medications Type 2 diabetes mellitus - very well controlled. Not currently taking any medications. Essential hypertension - blood pressure well controlled. Etienne Mccauley M.D.
--- NOTE | 2019-04-07 17:25 | OR ---
DATE OF PROCEDURE: 04/06/2019 PREOPERATIVE DIAGNOSIS: Intertrochanteric fracture, right hip. POSTOPERATIVE DIAGNOSIS: Intertrochanteric fracture, right hip. PROCEDURE: Internal fixation, right hip using Synthes TFNA intramedullary device. ANESTHESIA: Spinal. INDICATIONS: Bailey is a 74-year-old female, who sustained a fall when she was knocked off balance while walking her dog on the evening of 04/05/2019. She was admitted to the emergency room. Evaluated for surgery and taken to the operating room for fixation of an intertrochanteric hip fracture. Risks, benefits, and potential complications of the procedure were discussed with the patient and her family. DESCRIPTION OF PROCEDURE: After adequate anesthesia was obtained, the patient was placed on the fracture table. Right hip and leg were prepped and draped in a sterile fashion. Hip was visualized using fluoroscopy and an incision was made off the tip of the trochanter, carried down through the subcutaneous tissues. The tensor fascia was then divided longitudinally. Blunt dissection was carried down to the tip of the trochanter. A guide pin was then placed under fluoroscopic guidance. Intramedullary canal was then entered with a reamer. A 10 mm diameter short TFN tami was placed under fluoroscopic guidance. Guide was placed for the helical blade. Separate incision was made distal to the trochanter, carried down through the subcutaneous tissues and the IT band. The vastus lateralis was bluntly dissected and the guide was advanced to the cortex of the lateral femur. Guide pin was then placed into the femoral head and neck. Position was confirmed using fluoroscopy. Lateral cortex was drilled. Guide pin was measured and a 95 mm helical blade was then placed. A separate stab incision was made slightly distal to this and a distal locking screw was then placed. Final position was confirmed using fluoroscopy. Upon better visualization with removal of the guide, the helical blade was noted to be long penetrating the cortex of the femoral head. This was removed and replaced with an 85 mm blade. The blade was locked in position and final position was confirmed again using fluoroscopy. Wounds were then irrigated. Tensor fascia was closed with 0 Vicryl in a running fashion. Skin was closed with 2-0 Vicryl and a running 3-0 Monocryl. Steri-Strips were applied. Sterile dressing was then placed. The patient tolerated the procedure well and was taken from the operating room in stable condition. Noé Guidry MD /[id number]
--- NOTE | 2019-04-07 17:41 | PCM.SURGPN ---
- General Info Date of Service: 04/07/19 Date of Surgery/Procedure: 04/06/19 POD#: 1 Post-Op Diagnosis: Intertrochanteric fracture right hip Functional Status: Reports: Pain Controlled, Tolerating Diet - Review of Systems General: Reports: No Symptoms HEENT: Reports: No Symptoms Pulmonary: Reports: No Symptoms Cardiovascular: Reports: No Symptoms Gastrointestinal: Reports: No Symptoms Genitourinary: Reports: No Symptoms Musculoskeletal: Reports: Arm Pain, Leg Pain Skin: Reports: No Symptoms Neurological: Reports: No Symptoms Psychiatric: Reports: No Symptoms - Patient Data Vitals - Most Recent: Last Vital Signs Temp 35.9 C 04/07/19 15:21 Pulse 78 04/07/19 15:21 Resp 16 04/07/19 15:21 BP 110/55 L 04/07/19 15:21 Pulse Ox 98 04/07/19 15:21 Weight - Most Recent: 57.379 kg I&O - Last 24 Hours: Intake & Output 04/07/19 04/07/19 04/07/19 06:59 14:59 22:59 Intake Total 1680 Output Total 800 Balance 880 Lab Results Last 24 Hrs: Laboratory Results - last 24 hr 04/07/19 04/07/19 Range/Units 05:38 05:38 WBC 7.2 (4.5-11.0) K/uL RBC 2.88 L (3.30-5.50) M/uL Hgb 8.8 L D (12.0-15.0) g/dL Hct 27.0 L (36.0-48.0) % MCV 94 (80-98) fL MCH 31 (27-31) pg MCHC 33 (32-36) % Plt Count 159 (150-400) K/uL Sodium 138 L (140-148) mmol/L Potassium 4.6 (3.6-5.2) mmol/L Chloride 104 (100-108) mmol/L Carbon Dioxide 31 (21-32) mmol/L Anion Gap 7.6 (5.0-14.0) mmol/L BUN 10 (7-18) mg/dL Creatinine 0.8 (0.6-1.0) mg/dL Est Cr Clr Drug Dosing 53.75 mL/min Estimated GFR (MDRD) > 60 (>60) Glucose 159 H (74-106) mg/dL Calcium 8.7 (8.5-10.1) mg/dL Med Orders - Current: Current Medications Acetaminophen (Tylenol) 650 mg PO Q6H PRN PRN Reason: Pain (mild 1-3) Last Admin: 04/07/19 15:50 Dose: 650 mg Diltiazem HCl (Cardizem Cd) 120 mg PO DAILY [facility] Last Admin: 04/07/19 08:28 Dose: 120 mg Docusate Sodium (Colace) 100 mg PO BID PRN PRN Reason: Constipation Last Admin: 04/07/19 07:42 Dose: 100 mg Escitalopram Oxalate (Lexapro) 5 mg PO DAILY [facility] Last Admin: 04/07/19 08:27 Dose: 5 mg Promethazine HCl 6.25 mg/ (Sodium Chloride) 50.25 mls @ 200 mls/hr IV Q4H PRN PRN Reason: Nausea/Vomiting Cefazolin Sodium/Dextrose 1 gm (/ Premix) 50 mls @ 100 mls/hr IV Q8H [facility] Stop: 04/08/19 07:59 Last Admin: 04/07/19 15:42 Dose: 100 mls/hr Levothyroxine Sodium (Levothyroxine) 25 mcg PO ACBREAKFAST [facility] Last Admin: 04/07/19 07:43 Dose: 25 mcg Lisinopril (Prinivil) 20 mg PO DAILY [facility] Last Admin: 04/07/19 08:28 Dose: 20 mg Magnesium Hydroxide (Milk Of Magnesia) 30 ml PO Q6H PRN PRN Reason: Constipation Morphine Sulfate (Morphine) 2 mg IVPUSH Q1H PRN PRN Reason: Pain (severe 7-10) Last Admin: 04/07/19 06:02 Dose: 2 mg Mycophenolate Mofetil (Cellcept) 500 mg PO DAILY [facility] Last Admin: 04/07/19 10:53 Dose: 500 mg Ondansetron HCl (Zofran) 4 mg IV Q6H PRN PRN Reason: Nausea/Vomiting Last Admin: 04/06/19 07:58 Dose: 4 mg Pyridostigmine [place] (Mestinon) 120 mg PO BID [facility] Last Admin: 04/07/19 08:28 Dose: 120 mg Sodium Chloride (Saline Flush) 10 ml FLUSH ASDIRECTED PRN PRN Reason: Keep Vein Open Tramadol HCl (Ultram) 50 mg PO Q6H PRN PRN Reason: Pain (moderate 4-6) Last Admin: 04/07/19 13:24 Dose: 50 mg Discontinued Medications Bupivacaine HCl/Epinephrine Bitart (Marcaine 0.5%/Epinephrine 1:200,000) Confirm Administered Dose 50 ml .ROUTE .STK-MED ONE Stop: 04/06/19 12:20 Cefazolin Sodium (Ancef) Confirm Administered Dose 1 gm .ROUTE .STK-MED ONE Stop: 04/06/19 23:24 Last Admin: 04/06/19 23:31 Dose: 1 gm Dexamethasone (Dexamethasone) Confirm Administered Dose 4 mg .ROUTE .STK-MED ONE Stop: 04/06/19 14:32 Fentanyl (Sublimaze) 50 mcg NASBOTH ONETIME ONE Stop: 04/05/19 19:22 Last Admin: 04/05/19 19:30 Dose: 50 mcg Fentanyl (Sublimaze) 50 mcg NASBOTH ONETIME ONE Stop: 04/05/19 20:46 Last Admin: 04/05/19 20:53 Dose: 50 mcg Fentanyl (Sublimaze) Confirm Administered Dose 100 mcg .ROUTE .STK-MED ONE Stop: 04/06/19 08:51 Hydromorphone HCl (Dilaudid) 1 mg IVPUSH ONETIME ONE Stop: 04/05/19 21:55 Last Admin: 04/05/19 22:05 Dose: 1 mg Hydromorphone HCl (Dilaudid) 0.5 mg IVPUSH Q2H PRN PRN Reason: Pain Last Admin: 04/06/19 07:52 Dose: 0.5 mg Lactated Ringer's (Ringers, Lactated) 1,000 mls @ 125 mls/hr IV ASDIRECTED [facility] Lactated Ringer's (Ringers, Lactated) 1,000 mls @ 75 mls/hr IV ASDIRECTED [facility] Last Admin: 04/06/19 22:04 Dose: 75 mls/hr Lactated Ringer's (Ringers, Lactated) Confirm Administered Dose 1,000 mls @ as directed .ROUTE .STK-MED ONE Stop: 04/06/19 14:30 Sodium Chloride (Normal Saline) Confirm Administered Dose 50 mls @ as directed .ROUTE .STK-MED ONE Stop: 04/06/19 23:25 Last Admin: 04/06/19 23:31 Dose: 100 mls/hr Metformin HCl (Glucophage) 500 mg PO ASDIRECTED [facility] Midazolam HCl (Versed 1 Mg/Ml) Confirm Administered Dose 2 mg .ROUTE .STK-MED ONE Stop: 04/06/19 08:51 Ondansetron HCl (Zofran Odt) 4 mg PO ONETIME ONE Stop: 04/05/19 19:22 Last Admin: 04/05/19 19:31 Dose: 4 mg Ondansetron HCl (Zofran) Confirm Administered Dose 4 mg .ROUTE .STK-MED ONE Stop: 04/06/19 14:32 Propofol (Diprivan 20 Ml) Confirm Administered Dose 200 mg .ROUTE .STK-MED ONE Stop: 04/06/19 08:50 Propofol (Diprivan 20 Ml) Confirm Administered Dose 200 mg .ROUTE .STK-MED ONE Stop: 04/06/19 13:56 Scopolamine (Transderm-Scop) 1.5 mg TRDERM Q72H ONE Stop: 04/06/19 12:46 Last Admin: 04/06/19 12:55 Dose: 1.5 mg Sodium Chloride (Saline Flush) 10 ml FLUSH ASDIRECTED PRN 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 Last Admin: 04/05/19 22:10 Dose: 10 ml - Exam Wound/Incisions: Other (slight bleeding in dressing) General: Alert, Oriented HEENT: Pupils Equal Neck: Supple Lungs: Clear to Auscultation, Normal Respiratory Effort Cardiovascular: Regular Rate, Regular Rhythm GI/Abdominal Exam: Normal Bowel Sounds, Soft, Non-Tender, No Organomegaly, No Distention, No Abnormal Bruit, No Mass, Pelvis Stable Extremities: Other (Right arm with distal migration of biceps and bruising consistent with rupture of long head of biceps tendon, right hip with slight swelling) Skin: Warm, Dry, Intact Neurological: No New Focal Deficit Psy/Mental Status: Alert, Normal Affect, Normal Mood - Problem List & Annotations (1) Hypertension SNOMED Code(s): 23179311 Code(s): I10 - ESSENTIAL (PRIMARY) HYPERTENSION Status: Chronic Current Visit: Yes Qualifiers: Hypertension type: essential hypertension Qualified Code(s): I10 - Essential (primary) hypertension (2) Diabetes mellitus type 2 in nonobese SNOMED Code(s): 874144353 Code(s): E11.9 - TYPE 2 DIABETES MELLITUS WITHOUT COMPLICATIONS Status: Chronic Current Visit: Yes (3) Myasthenia gravis SNOMED Code(s): 56682446 Code(s): G70.00 - MYASTHENIA GRAVIS WITHOUT (ACUTE) EXACERBATION Status: Chronic Current Visit: Yes (4) Nondisplaced intertrochanteric fracture of femur SNOMED Code(s): 277330339, 979426960 Code(s): S72.146A - NONDISPLACED INTERTROCHANTERIC FRACTURE OF UNSP FEMUR, INIT Status: Acute Current Visit: Yes Qualifiers: Encounter type: initial encounter Fracture type: closed Laterality: right Qualified Code(s): S72.144A - Nondisplaced intertrochanteric fracture of right femur, initial encounter for closed fracture (5) Biceps rupture, proximal SNOMED Code(s): 112817659 Code(s): S46.119A - STRAIN OF MUSC/FASC/TEND LONG HEAD OF BICEPS, UNSP ARM, INIT Status: Acute Current Visit: Yes Qualifiers: Encounter type: initial encounter Laterality: right Qualified Code(s): S46.211A - Strain of muscle, fascia and tendon of other parts of biceps, right arm, initial encounter - Problem List Review Problem List Initiated/Reviewed/Updated: Yes - My Orders Last 24 Hours: Active Orders 24 hr Category Date Time Status Up With Assistance [RC] ASDIRECTED Care 04/07/19 13:14 Active Regular Diet [DIET] Diet 04/06/19 Dinner Active HGB [HEMOGLOBIN] [HEME] Timed Lab 04/08/19 05:00 Ordered Convert IV to Saline Lock [OM.PC] Routine Oth 04/07/19 13:13 Ordered Medication Orders Acetaminophen (Tylenol) 650 mg PO Q6H PRN PRN Reason: Pain (mild 1-3) Last Admin: 04/07/19 15:50 Dose: 650 mg Admin: 04/07/19 06:03 Dose: 650 mg Admin: 04/06/19 23:37 Dose: 650 mg Admin: 04/06/19 17:11 Dose: 650 mg Diltiazem HCl (Cardizem Cd) 120 mg PO DAILY [facility] Last Admin: 04/07/19 08:28 Dose: 120 mg Admin: 04/06/19 10:25 Dose: Docusate Sodium (Colace) 100 mg PO BID PRN PRN Reason: Constipation Last Admin: 04/07/19 07:42 Dose: 100 mg Escitalopram Oxalate (Lexapro) 5 mg PO DAILY [facility] Last Admin: 04/07/19 08:27 Dose: 5 mg Admin: 04/06/19 10:25 Dose: Promethazine HCl 6.25 mg/ (Sodium Chloride) 50.25 mls @ 200 mls/hr IV Q4H PRN PRN Reason: Nausea/Vomiting Cefazolin Sodium/Dextrose 1 gm (/ Premix) 50 mls @ 100 mls/hr IV Q8H [facility] Stop: 04/08/19 07:59 Last Admin: 04/07/19 15:42 Dose: 100 mls/hr Admin: 04/07/19 08:25 Dose: 100 mls/hr Admin: 04/06/19 23:31 Dose: Not Given Admin: 04/06/19 15:35 Dose: 100 mls/hr Levothyroxine Sodium (Levothyroxine) 25 mcg PO ACBREAKFAST [facility] Last Admin: 04/07/19 07:43 Dose: 25 mcg Admin: 04/06/19 10:25 Dose: Lisinopril (Prinivil) 20 mg PO DAILY [facility] Last Admin: 04/07/19 08:28 Dose: 20 mg Admin: 04/06/19 10:25 Dose: Magnesium Hydroxide (Milk Of Magnesia) 30 ml PO Q6H PRN PRN Reason: Constipation Morphine Sulfate (Morphine) 2 mg IVPUSH Q1H PRN PRN Reason: Pain (severe 7-10) Last Admin: 04/07/19 06:02 Dose: 2 mg Admin: 04/06/19 21:18 Dose: 2 mg Mycophenolate Mofetil (Cellcept) 500 mg PO DAILY [facility] Last Admin: 04/07/19 10:53 Dose: 500 mg Admin: 04/06/19 10:25 Dose: Ondansetron HCl (Zofran) 4 mg IV Q6H PRN PRN Reason: Nausea/Vomiting Last Admin: 04/06/19 07:58 Dose: 4 mg Admin: 04/06/19 01:32 Dose: 4 mg Pyridostigmine [place] (Mestinon) 120 mg PO BID [facility] Last Admin: 04/07/19 08:28 Dose: 120 mg Admin: 04/06/19 21:14 Dose: Not Given Admin: 04/06/19 10:25 Dose: Sodium Chloride (Saline Flush) 10 ml FLUSH ASDIRECTED PRN PRN Reason: Keep Vein Open Tramadol HCl (Ultram) 50 mg PO Q6H PRN PRN Reason: Pain (moderate 4-6) Last Admin: 04/07/19 13:24 Dose: 50 mg Admin: 04/07/19 07:42 Dose: 50 mg Admin: 04/07/19 01:33 Dose: 50 mg Admin: 04/06/19 19:16 Dose: 50 mg - Assessment Assessment (Free Text/Narrative):: Tolerated surgery very well, H/H decreased secondary to surgery. PT noted deformity of right biceps. Discussed mobility issues, she feels she would be more stable with a platform walker. - Plan Plan (Free Text/Narrative):: No treatment needed for biceps rupture. Continue PT/OT, will try platform walker, continue partial weight bearing on right leg, approx 50%.
[2019-04-08] MEDS: traMADol 50 MG Tab PO PRN ×2 (02:54→11:12)
[2019-04-08] MEDS: Levothyroxine 25 MCG Tab PO SCH (08:15)
[2019-04-08] MEDS: ceFAZolin 1 GM in Premix Bag 1 BAG IV SCH (08:15)
[2019-04-08] MEDS: Diltiazem 120 MG Cap.CD PO SCH (08:41)
[2019-04-08] MEDS: Mycophenolate Mofetil 250 MG Cap PO SCH (08:42)
[2019-04-08] MEDS: Escitalopram 10 MG Tab PO SCH (08:42)
[2019-04-08] MEDS: Lisinopril 20 MG Tab PO SCH (08:43)
--- NOTE | 2019-04-08 10:56 | PCM.DCSUM1 ---
Discharge Summary - Hospital Course Brief History: 74 rolled female with history of myasthenia gravis and diet- controlled diabetes mellitus who presented with right hip pain after falling at home. She is admitted for management of the intertrochanteric fracture of the right hip. Diagnosis: Stroke: No - Discharge Data Discharge Date: 04/08/19 Discharge Disposition: DC/Tfer to SNF 03 Condition: Good - Discharge Diagnosis/Problem(s) (1) Intertrochanteric fracture of right femur SNOMED Code(s): 768433517 ICD Code: S72.141A - DISPLACED INTERTROCHANTERIC FRACTURE OF RIGHT FEMUR, INIT Status: Acute Priority: Low Current Visit: Yes Qualifiers: Encounter type: initial encounter Fracture type: closed Fracture alignment: nondisplaced Qualified Code(s): S72.144A - Nondisplaced intertrochanteric fracture of right femur, initial encounter for closed fracture (2) Status post-operative repair of closed fracture of right hip SNOMED Code(s): 422751326 ICD Code: Z98.890 - OTHER SPECIFIED POSTPROCEDURAL STATES; Z87.81 - PERSONAL HISTORY OF (HEALED) TRAUMATIC FRACTURE Status: Acute Current Visit: Yes (3) Diabetes mellitus type 2 in nonobese SNOMED Code(s): 764150393 ICD Code: E11.9 - TYPE 2 DIABETES MELLITUS WITHOUT COMPLICATIONS Status: Chronic Current Visit: Yes (4) Myasthenia gravis SNOMED Code(s): 74567341 ICD Code: G70.00 - MYASTHENIA GRAVIS WITHOUT (ACUTE) EXACERBATION Status: Chronic Current Visit: Yes - Patient Summary/Data Consults: Consultations 04/06/19 10:17 Consult to Physician [CONS] Routine Consulting Provider: Etienne Mccauley Call Completed to Consulting Physician: Yes Reason for Consult: Pst op management DM, HTN, Myasthenia Person Notified: Dr. Mccauley Date Notified: 04/06/19 04/06/19 14:46 Consult to Case Management/Dairy Cattle [employer] Manager [CONS] Routine Comment: Physician Instructions: Service(s) to be Consulted: Case Management Reason for Consult: Plan for Discharge 04/06/19 14:52 Consult to Physical Therapy [PT Evaluation and Treatment] [CONS] Routine Please Evaluate and Treat. PT Reason for Consult: Post op Ortho Surgery Pending Discharge: Yes Discharge Disposition: [facility] Facility Special Instructions: Partial weight bearing on right, approx 50% This query below is only for informational purposes and is not editable. Admission Diagnosis/Problem: Hip fracture requiring operative repair 04/06/19 14:53 Consult to Occupational Therapy [OT Evaluation and Treatment] [CONS] Routine Please Evaluate and Treat. OT Reason for Consult: ADL's Pending Discharge: Yes Discharge Disposition: [facility] Facility Special Instructions: ADLs and adaptive devices This query below is only for informational purposes and is not editable. Admission Diagnosis/Problem: Hip fracture requiring operative repair 04/07/19 17:44 Consult to Physical Therapy [PT Evaluation and Treatment] [CONS] Routine Please Evaluate and Treat. PT Reason for Consult: Post op Ortho Surgery Special Instructions: Platform walker, PWB (50%) on right This query below is only for informational purposes and is not editable. Admission Diagnosis/Problem: Hip fracture requiring operative repair Hospital Course: Bailey presented to the emergency room with right hip pain after falling at home. X-ray raised suspicion and CT confirmed that she had a fracture involving the right hip. This was a nondisplaced intertrochanteric fracture. She was admitted to the hospital for surgical management and pain control prior to surgical intervention. The day after admission she had an uneventful operative repair with intramedullary nailing. Postoperative course has been relatively uneventful. Her hemoglobin did drop from 11 down to 8. Vital signs have all been stable. She has been doing well with physical therapy. She would benefit from additional therapy in a subacute rehabilitation setting prior to going home. She is to be 50% weightbearing on the right hip until at least a follow- up with the orthopedic team. Pain has been controlled using acetaminophen and tramadol. She does have a history of diabetes but has been controlling this with diet and is not currently taking any medications. Myasthenia gravis has been stable. - Patient Instructions Diet: Regular Diet as Tolerated Activity: Partial Weight Bearing (50% right leg ) Showering/Bathing: May Shower Wound/Incision Care: Change Dressing Daily (cover right hip dressing with 4x4 and secure with tape daily and as needed if soiled ) Notify Provider of: Fever, Increased Pain, Swelling and Redness Other/Special Instructions: 1. You were in the hospital for surgical management of a right hip fracture. I recommend subacute rehabilitation to help with your recovery following surgery. You may only bear 50% of your weight on the right leg for the time being. You may change the dressing daily which covers your incision. You may shower. I recommend acetaminophen for mild pain and tramadol for moderate pain. Because of the hip fracture and recent surgery, I recommend that you take enoxaparin 40 mg once daily to help prevent blood clots. You should take this blood thinning medication for one month postoperatively (end on 05/07). 2. Referral to physical and occupational therapy for strengthening after your hip fracture and surgery. 3. Continue your usual medications as previously prescribed. 4. Follow up with Dr. Guidry as scheduled in about 2 weeks. 5. Seek medical attention if you fever greater than 101, severe pain in your right hip or if you develop sudden onset of shortness of breath or chest pain - Discharge Plan *PRESCRIPTION DRUG MONITORING PROGRAM REVIEWED*: Not Applicable *COPY OF PRESCRIPTION DRUG MONITORING REPORT IN PATIENT BITA: Not Applicable Prescriptions/Med Rec: Acetaminophen [Tylenol] 650 mg PO Q6H PRN #200 tablet PRN Reason: Pain (Mild 1-3) Docusate Sodium [Colace] 100 mg PO BID PRN #60 cap PRN Reason: Constipation Enoxaparin [Lovenox] 40 mg SUBCUT DAILY #29 syringe traMADol [Ultram] 50 mg PO Q6H PRN #60 tablet PRN Reason: Pain (Moderate 4-6) Home Medications: Home Meds Diltiazem [Cardizem CD] 120 mg PO DAILY 04/05/19 [History] Escitalopram [Lexapro] 5 mg PO DAILY 04/05/19 [History] Levothyroxine 25 mcg PO ACBREAKFAST 04/05/19 [History] Lisinopril 20 mg PO DAILY 04/05/19 [History] Mycophenolate Mofetil [Cellcept] 500 mg PO DAILY 04/05/19 [History] Pyridostigmine [Mestinon] 120 mg PO BID 04/05/19 [History] Acetaminophen [Tylenol] 650 mg PO Q6H PRN #200 tablet 04/08/19 [Rx] Docusate Sodium [Colace] 100 mg PO BID PRN #60 cap 04/08/19 [Rx] Enoxaparin [Lovenox] 40 mg SUBCUT DAILY #29 syringe 04/08/19 [Rx] traMADol [Ultram] 50 mg PO Q6H PRN #60 tablet 04/08/19 [Rx] Oxygen Therapy Mode: Room Air Patient Handouts: Hip Fracture, Tramadol tablets Referrals: Noé Guidry MD [Physician] - 04/26/19 3:00 pm (Please arrive 15 minutes ealry to register for your appointment. Please check in at the ER desk.) - Discharge Summary/Plan Comment DC Time >30 min.: Yes (45 - new half-way discharge) - Patient Data Vitals - Most Recent: Last Vital Signs Temp 35.3 C 04/08/19 07:31 Pulse 86 04/08/19 08:41 Resp 16 04/08/19 07:31 BP 137/65 04/08/19 08:43 Pulse Ox 95 04/08/19 07:31 Weight - Most Recent: 57.379 kg I&O - Last 24 hours: Intake & Output 04/07/19 04/08/19 04/08/19 22:59 06:59 14:59 Intake Total 2150 Output Total 1300 500 Balance 2150 -1300 -500 Lab Results - Last 24 hrs: Laboratory Results - last 24 hr 04/08/19 Range/Units 04:20 Hgb 8.0 L (12.0-15.0) g/dL Med Orders - Current: Current Medications Acetaminophen (Tylenol) 650 mg PO Q6H PRN PRN Reason: Pain (mild 1-3) Last Admin: 04/07/19 22:39 Dose: 650 mg Diltiazem HCl (Cardizem Cd) 120 mg PO DAILY [facility] Last Admin: 04/08/19 08:41 Dose: 120 mg Docusate Sodium (Colace) 100 mg PO BID PRN PRN Reason: Constipation Last Admin: 04/07/19 07:42 Dose: 100 mg Enoxaparin Sodium (Lovenox) 40 mg SUBCUT DAILY [facility] Escitalopram Oxalate (Lexapro) 5 mg PO DAILY [facility] Last Admin: 04/08/19 08:42 Dose: 5 mg Promethazine HCl 6.25 mg/ (Sodium Chloride) 50.25 mls @ 200 mls/hr IV Q4H PRN PRN Reason: Nausea/Vomiting Levothyroxine Sodium (Levothyroxine) 25 mcg PO ACBREAKFAST [facility] Last Admin: 04/08/19 08:15 Dose: 25 mcg Lisinopril (Prinivil) 20 mg PO DAILY [facility] Last Admin: 04/08/19 08:43 Dose: 20 mg Magnesium Hydroxide (Milk Of Magnesia) 30 ml PO Q6H PRN PRN Reason: Constipation Last Admin: 04/08/19 08:50 Dose: 30 ml Morphine Sulfate (Morphine) 2 mg IVPUSH Q1H PRN PRN Reason: Pain (severe 7-10) Last Admin: 04/07/19 06:02 Dose: 2 mg Mycophenolate Mofetil (Cellcept) 500 mg PO DAILY [facility] Last Admin: 04/08/19 08:42 Dose: 500 mg Ondansetron HCl (Zofran) 4 mg IV Q6H PRN PRN Reason: Nausea/Vomiting Last Admin: 04/06/19 07:58 Dose: 4 mg Pyridostigmine [place] (Mestinon) 120 mg PO BID [facility] Last Admin: 04/08/19 08:43 Dose: 120 mg Sodium Chloride (Saline Flush) 10 ml FLUSH ASDIRECTED PRN PRN Reason: Keep Vein Open Tramadol HCl (Ultram) 50 mg PO Q6H PRN PRN Reason: Pain (moderate 4-6) Last Admin: 04/08/19 02:54 Dose: 50 mg Discontinued Medications Bupivacaine HCl/Epinephrine Bitart (Marcaine 0.5%/Epinephrine 1:200,000) Confirm Administered Dose 50 ml .ROUTE .STK-MED ONE Stop: 04/06/19 12:20 Cefazolin Sodium (Ancef) Confirm Administered Dose 1 gm .ROUTE .STK-MED ONE Stop: 04/06/19 23:24 Last Admin: 04/06/19 23:31 Dose: 1 gm Dexamethasone (Dexamethasone) Confirm Administered Dose 4 mg .ROUTE .STK-MED ONE Stop: 04/06/19 14:32 Fentanyl (Sublimaze) 50 mcg NASBOTH ONETIME ONE Stop: 04/05/19 19:22 Last Admin: 04/05/19 19:30 Dose: 50 mcg Fentanyl (Sublimaze) 50 mcg NASBOTH ONETIME ONE Stop: 04/05/19 20:46 Last Admin: 04/05/19 20:53 Dose: 50 mcg Fentanyl (Sublimaze) Confirm Administered Dose 100 mcg .ROUTE .STK-MED ONE Stop: 04/06/19 08:51 Hydromorphone HCl (Dilaudid) 1 mg IVPUSH ONETIME ONE Stop: 04/05/19 21:55 Last Admin: 04/05/19 22:05 Dose: 1 mg Hydromorphone HCl (Dilaudid) 0.5 mg IVPUSH Q2H PRN PRN Reason: Pain Last Admin: 04/06/19 07:52 Dose: 0.5 mg Lactated Ringer's (Ringers, Lactated) 1,000 mls @ 125 mls/hr IV ASDIRECTED [facility] Lactated Ringer's (Ringers, Lactated) 1,000 mls @ 75 mls/hr IV ASDIRECTED [facility] Last Admin: 04/06/19 22:04 Dose: 75 mls/hr Lactated Ringer's (Ringers, Lactated) Confirm Administered Dose 1,000 mls @ as directed .ROUTE .STK-MED ONE Stop: 04/06/19 14:30 Cefazolin Sodium/Dextrose 1 gm (/ Premix) 50 mls @ 100 mls/hr IV Q8H [facility] Stop: 04/08/19 07:59 Last Admin: 04/08/19 08:15 Dose: 100 mls/hr Sodium Chloride (Normal Saline) Confirm Administered Dose 50 mls @ as directed .ROUTE .STK-MED ONE Stop: 04/06/19 23:25 Last Admin: 04/06/19 23:31 Dose: 100 mls/hr Metformin HCl (Glucophage) 500 mg PO ASDIRECTED [facility] Midazolam HCl (Versed 1 Mg/Ml) Confirm Administered Dose 2 mg .ROUTE .STK-MED ONE Stop: 04/06/19 08:51 Ondansetron HCl (Zofran Odt) 4 mg PO ONETIME ONE Stop: 04/05/19 19:22 Last Admin: 04/05/19 19:31 Dose: 4 mg Ondansetron HCl (Zofran) Confirm Administered Dose 4 mg .ROUTE .STK-MED ONE Stop: 04/06/19 14:32 Propofol (Diprivan 20 Ml) Confirm Administered Dose 200 mg .ROUTE .STK-MED ONE Stop: 04/06/19 08:50 Propofol (Diprivan 20 Ml) Confirm Administered Dose 200 mg .ROUTE .STK-MED ONE Stop: 04/06/19 13:56 Scopolamine (Transderm-Scop) 1.5 mg TRDERM Q72H ONE Stop: 04/06/19 12:46 Last Admin: 04/06/19 12:55 Dose: 1.5 mg Sodium Chloride (Saline Flush) 10 ml FLUSH ASDIRECTED PRN PRN Reason: manager online Last Admin: 04/05/19 22:10 Dose: 10 ml - Exam Quality Assessment: Denies: Supplemental Oxygen General: Reports: Alert, Oriented, Cooperative, No Acute Distress Lungs: Reports: Normal Respiratory Effort GI/Abdominal Exam: Soft, No Distention Extremities: No Pedal Edema Wound/Incisions: Reports: Healing Well Psy/Mental Status: Reports: Alert, Normal Affect
[2019-04-08] MEDS ORDERED: Enoxaparin 40 MG/0.4 ML Syringe SUBCUT SCH (11:00)
[2019-04-08] MEDS: Acetaminophen 325 MG Tab PO PRN (13:03)
== END 2019-04-08 13:15 | DRG 482 ==
LOC: JP.ED 17:56 → JP.MS 23:19
PROVIDERS: ADMIT Specialist; ATTEND Specialist
PROC: 0QH606Z Insertion of Intramedullary Internal Fixation Device into Right Upper Femur, Open Approach (ICD-10-PCS; principal; 2019-04-06)
DX: S72.144A Nondisplaced intertrochanteric fracture of right femur, initial encounter for closed fracture (principal); W18.39XA Other fall on same level, initial encounter; I25.10 Atherosclerotic heart disease of native coronary artery without angina pectoris; I10 Essential (primary) hypertension; I25.2 Old myocardial infarction; K57.90 Diverticulosis of intestine, part unspecified, without perforation or abscess without bleeding; E11.9 Type 2 diabetes mellitus without complications; D89.89 Other specified disorders involving the immune mechanism, not elsewhere classified; Z79.84 Long term (current) use of oral hypoglycemic drugs; Z79.890 Hormone replacement therapy; Z79.899 Other long term (current) drug therapy; Z88.5 Allergy status to narcotic agent; Z91.040 Latex allergy status; H54.7 Unspecified visual loss; H91.90 Unspecified hearing loss, unspecified ear; M19.90 Unspecified osteoarthritis, unspecified site; E03.9 Hypothyroidism, unspecified; G70.00 Myasthenia gravis without (acute) exacerbation
CPT/HCPCS: 73030; 73080; 73502; 73700; 96374; 99285; A9270; J1170; J3010 ×2; 36415; 76000; 80048; 80053; 85018; 85025; 85027; 93005; 97110-GP; 97162-GP; 97165-GO; 97530-GP; 97535-GP; 99284; C1713; C1776; J0690; J1100; J1650; J2250; J2270; J2405; J2704; J3490; J7050; J7120